=== PATIENT | male | born 1950 | race Two or more races ===

== ENCOUNTER 2024-07-17 08:15 | Emergency (ER) | payer OTHER ==
[~2024-07-17] VITALS: Ht 167.6 cm; Wt 93.4 kg
[2024-07-17] MEDS ORDERED: ELIQUIS5 MG PO (08:58)
[2024-07-17] MEDS ORDERED: IRBESARTAN-HCT1 EACH PO (08:58)
[2024-07-17] MEDS ORDERED: CLORAZEPATE DI7.5 MG PO (08:58)
[2024-07-17] MEDS ORDERED: AMLODIPINE BESYL5 MG PO (08:58)
[2024-07-17] MEDS ORDERED: METFORMIN HCL1000 M3 PO (08:58)
[2024-07-17] MEDS ORDERED: METOPROLOL SUCC50 MG PO (08:58)
[2024-07-17] MEDS ORDERED: ACETAMINOPHEN 500 MG GEL..CAP PO STA (09:37)
[2024-07-17] MEDS ORDERED: CEFTRIAXONE SODIUM 2,000 MG VIAL IV STA (09:37)
[2024-07-17] MEDS ORDERED: ACETAMINOPHEN 500 MG GEL..CAP PO ONE (09:53)
[2024-07-17] MEDS ORDERED: CEFTRIAXONE SODIUM 2,000 MG VIAL ONE (09:54)
== END 2024-07-17 11:21 | disposition home or self-care (01) ==
LOC: ER 08:18
DX: S80.11XA Contusion of right lower leg, initial encounter (principal); X83.8XXA Intentional self-harm by other specified means, initial encounter; Y93.89 Activity, other specified; Y92.69 Other specified industrial and construction area as the place of occurrence of the external cause; Y99.8 Other external cause status; E11.9 Type 2 diabetes mellitus without complications; Z79.84 Long term (current) use of oral hypoglycemic drugs

== ENCOUNTER 2024-07-19 14:26 | Inpatient (IN) | payer OTHER ==
[~2024-07-19] VITALS: Ht 162.6 cm; Wt 93.0 kg
[~2024-07-19 14:26] MED LIST: AMLODIPINE BESYL5 MG PO; CLORAZEPATE DI7.5 MG PO; ELIQUIS5 MG PO; IRBESARTAN-HCT1 EACH PO; METFORMIN HCL1000 M3 PO; METOPROLOL SUCC50 MG PO
--- NOTE | 2024-07-19 14:33 | NUR ---
PTE ALERTA Y ORIENTADO X3 REFIERE DONNA TENIDO SANGRADO AL EVACUAR. PTE NOTIFICA PADECER DE HEMORROIDES Y DIVERTICULOS. SE MIDEN SV Y SE UBICA.
[2024-07-19] MEDS ORDERED: 0.9 % SODIUM CHLORIDE 500 ML IV ONE (15:45)
--- NOTE | 2024-07-19 16:58 | NUR ---
PACIENTE ALERTA Y ORIENTADO X3. SE EDUCA A PACIENTE SOBRE PROCESO DE JENNIFER DE MUESTRAS, CANALIZACION Y ADMINISTRACION DE IVFS, REFIERE ENTENDER. SE EJECUTAN ORDENES BAJO MEDIDAS ASEPTICAS. SE HACE ENTREGA DE ENVASE PARA U/A Y OCCULTI BLOOD.
[2024-07-19 17:05] LABS: HEMATOCRIT 22.6 % (39.0-48.0); MEAN CELL VOLUME 92.2 fL (80.0-100.00); MEAN CORPUSCULAR HEMOGLOBIN 30.2 pg (27.00-32.0); MEAN CORPUSCULAR HGB CONC 32.8 g/dl (32.0-36.0); PLATELET COUNT 216 K/uL (150-450); RED BLOOD COUNT 2.45 M/uL (4.00-6.00); RED CELL DISTRIBUTION WIDTH 14.3 % (11.5-14.5)
[2024-07-19 17:07] LABS: HEMOGLOBIN 7.4 g/dL (13-16.00)
[2024-07-19] MEDS ORDERED: FUROsemide 20 MG/2 ML VIAL IV SCH (17:15)
[2024-07-19 17:23] LABS: URINE APPEARANCE Clear; URINE BILIRRUBIN Negative (NEGATIVE); URINE BLOOD Negative; URINE COLOR Yellow; URINE GLUCOSE Negative (NEGATIVE); URINE KETONE Negative (NEGATIVE); URINE LEUKOCYTE Negative; URINE NITRATE Negative; URINE PROTEIN Negative (NEGATIVE); URINE UROBILINOGEN 0.2 E.U./dl
[2024-07-19 17:27] LABS: URINE BACTERIA 18.3 uL (0.0-1933); URINE EPITHELIAL CELLS 3.7 uL (0.0-38.8); URINE RBC 2.5 uL (0.0-20.8); URINE WBC 5.6 uL (0.0-23.2); ob POSITIVE (NEGATIVE)
[2024-07-19 17:32] LABS: BILIRUBIN TOTAL 0.29 mg/dL (0.3-1.2); CALCIUM 8.2 mg/dL (8.5-10.1); CREATININE SERUM 0.91 mg/dL (0.70-1.30); GFR 81.44; GLOBULINA 2.7 G/DL (2.4-3.5); POTASSIUM 3.83 mEq/L (3.5-5.1); TOTAL PROTEIN 5.7 gm/dL (6.4-8.2)
[2024-07-19 17:36] LABS: INR 1.04; PARTIAL THROMBOPLASTIN TIME 24.5 SECONDS (22.0-34.0); PROTHROMBIN TIME 11.3 SECONDS (9.0-11.5)
[2024-07-19 17:41] LABS: URINE CAST 0.58 uL (0.0-1.40)
[2024-07-19] MEDS ORDERED: 0.9 % SODIUM CHLORIDE 1,000 ML IV SCH (18:45)
[2024-07-19] MEDS ORDERED: METOPROLOL SUCCINATE 50 MG TAB.SR.24H PO SCH (18:46)
[2024-07-19] MEDS ORDERED: PANTOPRAZOLE SODIUM 40 MG/VIAL VIAL IV SCH (18:47)
[2024-07-19] MEDS ORDERED: ONDANSETRON HCL 4 MG in 0.9 % SODIUM CHLORIDE 50 ML IV PRN (19:00)
[2024-07-19] MEDS ORDERED: CEFTRIAXONE SODIUM 2,000 MG in 0.9 % SODIUM CHLORIDE 100 ML IV SCH (20:49)
[2024-07-19] MEDS ORDERED: CEFTRIAXONE SODIUM 2,000 MG VIAL ONE (21:46)
[2024-07-20] VITALS (13 sets, daily range): BP systolic 97–135; BP diastolic 36–66; O2SAT 96–100
[2024-07-20 05:28] LABS: HEMATOCRIT 19.3 % (39.0-48.0); MEAN CELL VOLUME 91.8 fL (80.0-100.00); MEAN CORPUSCULAR HEMOGLOBIN 29.8 pg (27.00-32.0); MEAN CORPUSCULAR HGB CONC 32.7 g/dl (32.0-36.0); PLATELET COUNT 205 K/uL (150-450); RED BLOOD COUNT 2.11 M/uL (4.00-6.00)
[2024-07-20 05:36] LABS: HEMOGLOBIN 6.3 g/dL (13-16.00)
[2024-07-20] MEDS ORDERED: AMLODIPINE BESYLATE 5 MG TABLET PO SCH (09:00)
[2024-07-20] MEDS ORDERED: IRBESARTAN 150 MG TABLET PO SCH (09:00)
[2024-07-20] MEDS ORDERED: FUROsemide 20 MG/2 ML VIAL ONE (21:09)
[2024-07-21 00:40] VITALS: BP 108/46; O2SAT 99
[2024-07-21 01:32] LABS: HEMATOCRIT 25.8 % (39.0-48.0); HEMOGLOBIN 8.7 g/dL (13-16.00); MEAN CELL VOLUME 90.2 fL (80.0-100.00); MEAN CORPUSCULAR HEMOGLOBIN 30.4 pg (27.00-32.0); MEAN CORPUSCULAR HGB CONC 33.9 g/dl (32.0-36.0); PLATELET COUNT 168 K/uL (150-450); RED BLOOD COUNT 2.86 M/uL (4.00-6.00); RED CELL DISTRIBUTION WIDTH 14.7 % (11.5-14.5)
[2024-07-21 03:41] VITALS: BP 106/49; O2SAT 97
[2024-07-21 12:10] VITALS: O2SAT 97
[2024-07-21] MEDS ORDERED: FUROsemide 20 MG/2 ML VIAL IV SCH (13:30)
[2024-07-21 16:25] VITALS: O2SAT 96
[2024-07-21 17:51] VITALS: BP 128/2; O2SAT 98
[2024-07-21 22:20] VITALS: O2SAT 95
[2024-07-22] VITALS (8 sets, daily range): BP systolic 135–154; BP diastolic 70–77; O2SAT 90–98
[2024-07-22 10:35] LABS: HEMOGLOBIN 10.9 g/dL (13-16.00); MEAN CORPUSCULAR HEMOGLOBIN 31.2 pg (27.00-32.0); PLATELET COUNT 188 K/uL (150-450); RED BLOOD COUNT 3.48 M/uL (4.00-6.00); RED CELL DISTRIBUTION WIDTH 15.2 % (11.5-14.5)
[2024-07-22] MEDS ORDERED: DIPHENHYDRAMINE HCL 50 MG/ML VIAL 1ML IV NR (11:15)
[2024-07-22] MEDS ORDERED: MIDAZOLAM HCL 2 MG/2 ML VIAL IV ONE (11:15)
[2024-07-22] MEDS ORDERED: fentaNYL CITRATE 50 MCG/ML AMPUL IV PUSH ONE (11:15)
[2024-07-23 00:43] VITALS: O2SAT 96
[2024-07-23 01:13] VITALS: BP 131/64; O2SAT 96
[2024-07-23 05:44] VITALS: O2SAT 94
[2024-07-23 08:00] VITALS: BP 133/75; O2SAT 98
[2024-07-23 08:31] VITALS: O2SAT 96
[2024-07-23 17:20] VITALS: BP 145/67; O2SAT 97
[2024-07-24 02:07] VITALS: BP 138/67; O2SAT 96
[2024-07-24 08:50] VITALS: BP 149/68; O2SAT 98
[2024-07-24] MEDS ORDERED: TOPROL XL50 M1 PO (10:13)
[2024-07-24] MEDS ORDERED: AMLODIPINE BESYL5 MG PO (10:13)
[2024-07-24] MEDS ORDERED: AVAPRO150 MG PO (10:13)
[2024-07-24] MEDS ORDERED: METFORMIN HCL1000 M3 PO (10:17)
[2024-07-24] MEDS ORDERED: ELIQUIS5 MG PO (10:19)
== END 2024-07-24 13:21 | disposition home or self-care (01) | DRG 812 ==
LOC: ER 14:28 → MEDI 20:16 → ICU-2 20:16 → MEDI 07-21 08:01
PROVIDERS: Emergency Medicine; General Practice; ADMIT Internal Medicine; ATTEND Internal Medicine
PROC: BW21ZZZ Computerized Tomography (CT Scan) of Abdomen and Pelvis (ICD-10-PCS; principal; 2024-07-19)
PROC: 30233N1 Transfusion of Nonautologous Red Blood Cells into Peripheral Vein, Percutaneous Approach (ICD-10-PCS; 2024-07-20)
PROC: 4A12X4Z Monitoring of Cardiac Electrical Activity, External Approach (ICD-10-PCS; 2024-07-21)
PROC: 0DJD8ZZ Inspection of Lower Intestinal Tract, Via Natural or Artificial Opening Endoscopic (ICD-10-PCS; 2024-07-22)
DX: D64.9 Anemia, unspecified (principal); K62.5 Hemorrhage of anus and rectum; I48.91 Unspecified atrial fibrillation; I11.9 Hypertensive heart disease without heart failure; E11.9 Type 2 diabetes mellitus without complications; Z79.4 Long term (current) use of insulin

== ENCOUNTER 2024-11-06 16:46 | Emergency (ER) | payer OTHER ==
[~2024-11-06] VITALS: Ht 172.7 cm; Wt 93.4 kg
[~2024-11-06 16:46] MED LIST changes: +AVAPRO150 MG PO; +TOPROL XL50 M1 PO
[2024-11-06] MEDS ORDERED: NORVASC5 MG (17:15)
[2024-11-06] MEDS ORDERED: DIPHENHYDRAMINE HCL 50 MG/ML VIAL 1ML IV STA (17:23)
[2024-11-06] MEDS ORDERED: METHYLPREDNISOLONE SOD SUCC 125 MG VIAL IV STA (17:26)
[2024-11-06] MEDS ORDERED: METHYLPREDNISOLONE SOD SUCC 125 MG VIAL ONE (17:33)
[2024-11-06] MEDS ORDERED: DIPHENHYDRAMINE HCL 50 MG/ML VIAL 1ML ONE (17:33)
[2024-11-06 17:39] LABS: BASO % 0.4 % (0.1-1.2); EOS # 0.04 (0.04-0.54); EOS % 0.4 % (0.7-7.0); HEMATOCRIT 35.1 % (40.1-51.0); HEMOGLOBIN 11.7 g/dL (13.7-17.5); LYMPH # 1.68 (1.18-3.74); MEAN CORPUSCULAR HEMOGLOBIN 28.7 pg (25.6-32.2); MONO # 0.69 (0.24-0.82); MONO % 6.6 % (4.7-12.5); NEUT # 7.99 (1.56-6.13); NEUT % 76.3 % (34.0-71.1); PLATELET COUNT 214 K/uL (163-369); RED BLOOD COUNT 4.08 M/uL (4.63-6.08); RED CELL DISTRIBUTION WIDTH 14.5 % (11.6-14.4)
[2024-11-06 17:58] LABS: INR 1.02; PARTIAL THROMBOPLASTIN TIME 30.5 SECONDS (22.0-34.0); PROTHROMBIN TIME 11.1 SECONDS (9.0-11.5)
[2024-11-06 18:01] LABS: ALBUMIN 3.6 gm/dL (3.4-5.0); BILIRUBIN TOTAL 0.44 mg/dL (0.3-1.2); CALCIUM 9.2 mg/dL (8.5-10.1); CREATININE SERUM 0.71 mg/dL (0.70-1.30); GFR 108.45; GLOBULINA 3.7 G/DL (2.4-3.5); POTASSIUM 3.71 mEq/L (3.5-5.1); TOTAL PROTEIN 7.3 gm/dL (6.4-8.2)
== END 2024-11-06 18:28 | disposition home or self-care (01) ==
LOC: ER 17:00
PROVIDERS: General Practice
DX: Z88.6 Allergy status to analgesic agent (principal); T39.8X5A Adverse effect of other nonopioid analgesics and antipyretics, not elsewhere classified, initial encounter; Y92.89 Other specified places as the place of occurrence of the external cause

== ENCOUNTER → 2024-11-18 07:36 | Outpatient (CLI) | payer OTHER ==
[~2024-11-18 07:36] MED LIST changes: +NORFLEX100MG PO; +NORVASC5 MG
== END | disposition home or self-care (01) ==
LOC: NUCLEAR 07:36
DX: I87.2 Venous insufficiency (chronic) (peripheral) (principal)

== ENCOUNTER 2024-11-30 18:00 | Emergency (ER) | payer OTHER ==
[~2024-11-30] VITALS: Ht 172.7 cm; Wt 90.7 kg
[~2024-11-30 18:00] MED LIST changes: -NORFLEX100MG PO
[2024-11-30 21:48] LABS: BASO % 0.4 % (0.1-1.2); EOS # 0.07 (0.04-0.54); EOS % 0.9 % (0.7-7.0); LYMPH # 1.92 (1.18-3.74); LYMPH % 24.3 % (19.3-53.1); MEAN PLATELET VOLUME 10.80 fl (9.4-12.4); MONO # 0.72 (0.24-0.82); MONO % 9.1 % (4.7-12.5); NEUT # 5.16 (1.56-6.13); NEUT % 65.2 % (34.0-71.1); RED CELL DISTRIBUTION WIDTH 15.5 % (11.6-14.4)
[2024-11-30 22:31] LABS: ALT/SGPT 21.0 U/L (12-78); AST/SGOT 12.0 U/L (15-37); BILIRUBIN TOTAL 0.57 mg/dL (0.3-1.2); BUN CREA RATIO 23.0 (7.0-25.0); CREATININE SERUM 0.84 mg/dL (0.70-1.30); GFR 89.08; GLOBULINA 3.0 G/DL (2.4-3.5); GLUCOSE FASTING 92.0 mg/dL (65-100); OSMOLALITY SERUM 291.0 MOSM/KG (275-295)
[2024-12-01] MEDS ORDERED: NORFLEX100MG PO (00:31)
== END 2024-12-01 00:37 | disposition home or self-care (01) ==
LOC: ER 18:45
PROVIDERS: Preventive Medicine Public Health & General Preventive Medicine
DX: F41.8 Other specified anxiety disorders (principal); Z88.6 Allergy status to analgesic agent; I10 Essential (primary) hypertension

== ENCOUNTER 2025-05-03 11:32 | Emergency (ER) | payer OTHER ==
[~2025-05-03] VITALS: Ht 172.7 cm; Wt 88.9 kg
[~2025-05-03 11:32] MED LIST changes: +NORFLEX100MG PO
[2025-05-03] MEDS ORDERED: FAMOTIDINE/PF 20 MG in 0.9 % SODIUM CHLORIDE 8 ML IV PUSH STA (12:22)
[2025-05-03] MEDS ORDERED: FAMOTIDINE/PF 20 MG/2 ML VIAL ONE (12:25)
[2025-05-03] MEDS ORDERED: 0.9 % SODIUM CHLORIDE 1,000 ML IV SCH (12:30)
[2025-05-03 12:56] LABS: BASO % 0.3 % (0.1-1.2); EOS # 0.03 (0.04-0.54); EOS % 0.3 % (0.7-7.0); LYMPH # 1.67 (1.18-3.74); LYMPH % 16.8 % (19.3-53.1); MEAN PLATELET VOLUME 10.80 fl (9.4-12.4); MONO # 0.61 (0.24-0.82); MONO % 6.1 % (4.7-12.5); NEUT # 7.60 (1.56-6.13); NEUT % 76.2 % (34.0-71.1); RED CELL DISTRIBUTION WIDTH 14.1 % (11.6-14.4)
[2025-05-03 13:40] LABS: ALT/SGPT 23 U/L (12-78); AST/SGOT 11 U/L (15-37); BILIRUBIN TOTAL 0.59 mg/dL (0.3-1.2); BUN CREA RATIO 25 (7.0-25.0); CREATININE SERUM 0.73 mg/dL (0.70-1.30); GFR 104.74; GLOBULINA 3.6 G/DL (2.4-3.5); GLUCOSE FASTING 97 mg/dL (65-100); OSMOLALITY SERUM 285 MOSM/KG (275-295)
[2025-05-03 13:41] LABS: CKMB < 1.0 NG/ML (0.5-3.6)
[2025-05-03 13:51] LABS: URINE APPEARANCE Clear; URINE BILIRRUBIN Negative (NEGATIVE); URINE BLOOD Negative; URINE COLOR Yellow; URINE GLUCOSE Negative (NEGATIVE); URINE KETONE Negative (NEGATIVE); URINE LEUKOCYTE Negative; URINE NITRATE Negative; URINE PROTEIN Negative (NEGATIVE); URINE UROBILINOGEN 0.2 E.U./dl
[2025-05-03 14:02] LABS: URINE BACTERIA 0 uL (0.0-1933); URINE CAST 0.00 uL (0.0-1.40); URINE EPITHELIAL CELLS 0.1 uL (0.0-38.8); URINE RBC 1.8 uL (0.0-20.8); URINE WBC 0.3 uL (0.0-23.2)
== END 2025-05-03 20:06 | disposition home or self-care (01) ==
LOC: ER 11:32
PROVIDERS: General Practice
DX: F41.8 Other specified anxiety disorders (principal); R07.89 Other chest pain; E11.9 Type 2 diabetes mellitus without complications; Z79.84 Long term (current) use of oral hypoglycemic drugs; I10 Essential (primary) hypertension; Z88.6 Allergy status to analgesic agent; Z88.8 Allergy status to other drugs, medicaments and biological substances
CPT/HCPCS: 36415; 70450; 93005; 96365; 96366; 99283; J3490; J7030